=== PATIENT | male | born 1970 | race Caucasian/White ===

== ENCOUNTER 2016-11-28 09:47 | Emergency (ER) | payer BC ==
--- NOTE | 2016-11-28 10:33 | EDM.PDOC ---
ED HPI Behavioral Health - General Chief Complaint: Behavioral/Psych Stated Complaint: SICK Time Seen by Provider: 11/28/16 10:08 Source of Information: Reports: Patient Exam Limitations: Reports: No limitations - History of Present Illness INITIAL COMMENTS - FREE TEXT/NARRATIVE: Presents to the ER looking for anti-depressant/anti-anxiety medication. The patient states that he was at a counselor's office this morning having a session. This was at the [facility] here in [place]. He was told by his counselor that he needed to be on medication. She gave him the number of a couple clinics to get an appointment but neither could see him for almost 3 weeks. He reports a several year history of underlying depressive symptoms including a loss of interest and pleasure in doing things, poor appetite, weight loss, poor focus and concentration, poor libido and sleep problems. He denies any self- harm ideations. Within the last month however he has developed some anxiety symptoms related to breakdown of his relationship with his . Those are what is most bothersome for him right now. His symptoms include palpitations, constant every day worry, hot flashes, and inability to focus on his work due to racing thoughts. He has not been treated with cycle active medications in the past. - Related Data Allergies Allergy/AdvReac Type Severity Reaction Status Date / Time No Known Allergies Allergy Verified 11/28/16 09:51 Home Medications: Home Meds Linaclotide [Linzess] 72 mcg PO DAILY 11/28/16 [History] Past Medical History - Past Health History Medical/Surgical History: Denies Medical/Surgical History Psychiatric History: Reports: Anxiety, Depression - Infectious Disease History Infectious Disease History: Reports: Chicken pox Social & Family History - Family History Family Medical History: Noncontributory - Tobacco Use Smoking Status *Q: Never Smoker Second Hand Smoke Exposure: No - Caffeine Use Caffeine Use: Reports: None - Alcohol Use Days Per Week of Alcohol Use: 0 - Recreational Drug Use Recreational Drug Use: No ED ROS GENERAL - Review of Systems Review Of Systems: ROS reveals no pertinent complaints other than HPI. ED EXAM, BEHAVIORAL HEALTH - Physical Exam Exam: See Below Exam Limited By: No limitations General Appearance: alert, moderate distress (crying due to an increase in depressive symptoms) Ears: normal external exam Nose: normal inspection Throat/Mouth: Normal inspection Head: atraumatic, normocephalic Neck: normal inspection Respiratory/Chest: no respiratory distress Cardiovascular: normal peripheral pulses Extremities: normal inspection Neurological: alert Psychiatric: depressed mood, tearful Skin Exam: Warm, Dry, Intact, Normal color, No rash COURSE, BEHAVIORAL HEALTH COMP - Course Vital Signs: Last Vital Signs Temp 36.4 C 11/28/16 09:47 Pulse 90 11/28/16 09:47 Resp 18 11/28/16 09:47 BP 138/79 11/28/16 09:47 Pulse Ox 97 11/28/16 09:47 Departure - Departure Time of Disposition: 10:34 Disposition: Home, Self-Care 01 Condition: fair Clinical Impression: Anxiety, Depressive disorder Referrals: PCP,None [Primary Care Provider] - [facility] [Emergency Midlevel Provider] - Forms: ED Department Discharge Additional Instructions: 1. You may take Xanax 0.5 mg 3 times a day as needed for anxiety symptoms. No driving or operating machinery until its effects are fully appreciated. 2. See ST[facility]EN Hollins in the [facility] clinic in [place], [place] on November 30. Call [phone] for an appointment. 3. Seek prompt medical attention for self-harm ideations
[2016-11-28 10:56] VITALS: BP 140/80
== END 2016-11-28 10:57 | disposition home or self-care (01) ==
LOC: MW.ED 09:47
DX: F41.9 Anxiety disorder, unspecified (principal); F32.9 Major depressive disorder, single episode, unspecified; Z79.899 Other long term (current) drug therapy
CPT/HCPCS: 99283

== ENCOUNTER 2017-08-27 09:54 | Day surgery (SDC) | payer BC, OTHER ==
[~2017-08-27 09:54] MED LIST: Lactated Ringers 1,000 ML IV SCH
--- NOTE | 2017-08-27 10:35 | PCM.PREANE ---
Preanesthetic Assessment - Anesthesia/Transfusion/Family Hx Anesthesia History: Prior Anesthesia Without Reaction Family History of Anesthesia Reaction: No Transfusion History: No Prior Transfusion(s) - Review of Systems General: No Symptoms Pulmonary: No Symptoms Cardiovascular: No Symptoms Neurological: No Symptoms Other: Reports: None - Physical Assessment NPO Status Date: 08/26/17 Height: 1.63 m Weight: 83.007 kg ASA Class: 2 Mental Status: Alert & Oriented x3 Airway Class: Mallampati = 1 Dentition: Reports: Normal Dentition ROM/Head Extension: Full Lungs: Clear to Auscultation, Normal Respiratory Effort Cardiovascular: Regular Rate, Regular Rhythm - Allergies Allergies/Adverse Reactions: Allergies Allergy/AdvReac Type Severity Reaction Status Date / Time No Known Allergies Allergy Verified 11/28/16 09:51 - Anesthesia Plan Pre-Op Medication Ordered: None - Acknowledgements Anesthesia Type Planned: MAC Pt an Appropriate Candidate for the Planned Anesthesia: Yes Alternatives and Risks of Anesthesia Discussed w Pt/Guardian: Yes Pt/Guardian Understands and Agrees with Anesthesia Plan: Yes PreAnesthesia Questionnaire - Past Health History Medical/Surgical History: Denies Medical/Surgical History HEENT History: Reports: Other (See Below) Other HEENT History: wears glasses Respiratory History: Reports: Sleep Apnea Other Respiratory History: uses CPAP Gastrointestinal History: Reports: Hemorrhoids Genitourinary History: Reports: Renal Calculus Musculoskeletal History: Reports: Back Pain, Chronic Neurological History: Reports: Concussion Psychiatric History: Reports: Anxiety, Depression Endocrine/Metabolic History: Reports: Obesity/BMI 30+ Dermatologic History: Reports: Eczema - Infectious Disease History Infectious Disease History: Reports: Chicken Pox - Past Surgical History Head Surgeries/Procedures: Reports: None GI Surgical History: Reports: Colonoscopy Male Surgical History: Reports: Kidney Stone Extraction - SUBSTANCE USE Smoking Status *Q: Never Smoker Second Hand Smoke Exposure: No Days Per Week of Alcohol Use: 0 Recreational Drug Use History: No - HOME MEDS Home Medications: Home Meds Linaclotide [Linzess] 145 mcg PO DAILY 11/28/16 [History] DULoxetine HCl [Cymbalta] 90 mg PO DAILY 08/22/17 [History] Ibuprofen 2 tab PO ASDIRECTED PRN 08/22/17 [History] - CURRENT (IN HOUSE) MEDS Current Meds: Current Medications Lactated Ringer's (Ringers, Lactated) 1,000 mls @ 125 mls/hr IV ASDIRECTED [facility] Last Admin: 08/27/17 10:16 Dose: 125 mls/hr
[2017-08-27] MEDS ORDERED: Propofol 200 MG/20 ML SDV ONE ×2 (10:45→12:03)
[2017-08-27] MEDS ORDERED: Midazolam 1 MG/ML 2 ML SDV ONE (10:45)
[2017-08-27] MEDS ORDERED: Lidocaine 2% 5 ML SDV ONE (10:45)
[2017-08-27] MEDS ORDERED: fentaNYL 100 MCG/2 ML SDV ONE (10:45)
--- NOTE | 2017-08-27 12:26 | PCM.OPNOTE ---
- General Post-Op/Procedure Note Date of Surgery/Procedure: 08/27/17 Operative Procedure(s): Colonoscopy Pre Op Diagnosis: Intermittent rectal bleeding Post-Op Diagnosis: Mild sigmoid diverticulosis. Internal hemorrhoids. Anesthesia Technique: MAC (ASA II) Primary Surgeon: Moy Maciel Condition: Good Free Text/Narrative:: Dictation [id number] CPT CODE [id number]
[2017-08-27] MEDS ORDERED: Lactated Ringers 1,000 ML IV SCH (12:30)
[2017-08-27 13:17] VITALS: BP 108/75
--- NOTE | 2017-08-27 13:55 | PCM.POSTAN ---
POST ANESTHESIA ASSESSMENT - MENTAL STATUS Mental Status: Alert, Oriented - RESPIRATORY Respiratory Status: Respiratory Rate WNL, Airway Patent, O2 Saturation Stable - CARDIOVASCULAR CV Status: Pulse Rate WNL, Blood Pressure Stable - GASTROINTESTINAL GI Status: No Symptoms - POST OP HYDRATION Hydration Status: Adequate & Stable
--- NOTE | 2017-08-27 13:56 | PCM48HPAN ---
Post Anesthesia Note - EVALUATION WITHIN 48HRS OF ANESTHETIC Vital Signs in Normal Range: Yes Patient Participated in Evaluation: Yes Respiratory Function Stable: Yes Airway Patent: Yes Cardiovascular Function Stable: Yes Hydration Status Stable: Yes Pain Control Satisfactory: Yes Nausea and Vomiting Control Satisfactory: Yes Mental Status Recovered: Yes
--- NOTE | 2017-08-27 16:59 | OR ---
SURGEON: Moy Maciel M.D. DATE OF PROCEDURE: 08/27/2017 OPERATION PERFORMED: Colonoscopy. ANESTHESIA: MAC. ASA CLASSIFICATION: 2. PREOPERATIVE DIAGNOSIS: 1. Intermittent rectal bleeding. 2. Family history of colon polyps. POSTOPERATIVE DIAGNOSES: 1. Mild diverticulosis. 2. Internal hemorrhoids. DESCRIPTION OF PROCEDURE: The patient was taken to the endoscopy room, positioned on the endoscopy table in the left lateral decubitus position. Time-out was called for appropriate identification of patient and procedure. Monitored anesthesia care was provided. The colonoscope was inserted into the rectum and advanced with minimal difficulty to the cecum where the colonoscope was retroflexed to visualize the ascending colon from below. The colonoscope was then straightened and slowly withdrawn. The cecum, ascending colon, hepatic flexure, transverse colon, splenic flexure, and descending colon showed no tumors, polyps, diverticula, or angiodysplastic changes. A few small scattered diverticula were noted in the sigmoid colon. No stricture, spasm, or bleeding was noted. No polyps were encountered. The colonoscope was withdrawn to the rectum and retroflexed to visualize the anal orifice from above. The patient does have grade 1 internal hemorrhoids. There was no acute bleeding. The colonoscope was then straightened, the rectum aspirated, and the colonoscope removed. The patient tolerated the procedure well and was taken to recovery room in stable condition. ZEN EPSTEIN /[id number] GILMAR
== END 2017-08-27 13:10 | disposition home or self-care (01) ==
LOC: MW.SDS 09:54
PROVIDERS: ATTEND Surgery
DX: K57.30 Diverticulosis of large intestine without perforation or abscess without bleeding (principal); K64.0 First degree hemorrhoids; K62.5 Hemorrhage of anus and rectum; K40.90 Unilateral inguinal hernia, without obstruction or gangrene, not specified as recurrent; K42.9 Umbilical hernia without obstruction or gangrene; G47.30 Sleep apnea, unspecified; G89.29 Other chronic pain; M54.9 Dorsalgia, unspecified; F41.9 Anxiety disorder, unspecified; F32.9 Major depressive disorder, single episode, unspecified; E66.9 Obesity, unspecified; Z68.31 Body mass index [BMI] 31.0-31.9, adult; Z87.442 Personal history of urinary calculi; Z83.71 Family history of colonic polyps; Z79.899 Other long term (current) drug therapy; Z99.89 Dependence on other enabling machines and devices; Z98.890 Other specified postprocedural states
CPT/HCPCS: 45378; J2250; J3010; J7120; 00811; J2704

== ENCOUNTER 2024-07-16 07:08 | Day surgery (SDC) | payer BC ==
[2024-07-16] MEDS ORDERED: Propofol 200 MG/20 ML SDV ONE (07:18)
[2024-07-16] MEDS ORDERED: fentaNYL 100 MCG/2 ML SDV ONE (07:18)
[2024-07-16] MEDS ORDERED: dexmedeTOMIDine HCl 200 MCG/2 ML SDV ONE (07:18)
[2024-07-16] MEDS ORDERED: Ropivacaine 0.5% 5 MG/ML 30 ML SDV ONE (07:22)
[2024-07-16] MEDS ORDERED: Famotidine 20 MG/2 ML SDV ONE (07:22)
[2024-07-16] MEDS ORDERED: Lidocaine 2% 5 ML SDV ONE (07:23)
[2024-07-16] MEDS: Lactated Ringers 1,000 ML IV SCH (07:30)
[2024-07-16] MEDS ORDERED: Metoclopramide 10 MG/2 ML SDV IVPUSH PRN (07:36)
[2024-07-16] MEDS ORDERED: HYDROmorphone 1 MG/ML Syringe IVPUSH PRN (07:36)
[2024-07-16] MEDS ORDERED: Phenylephrine HCl In 0.9% NaCl 1 MG/10 ML Syringe IVPUSH PRN (07:36)
[2024-07-16] MEDS ORDERED: Naloxone 0.4 MG/ML SDV IVPUSH PRN (07:36)
[2024-07-16] MEDS ORDERED: Ondansetron 4 MG/2 ML SDV IVPUSH PRN (07:36)
[2024-07-16] MEDS ORDERED: fentaNYL 50 MCG/ML SDV IVPUSH PRN (07:36)
[2024-07-16] MEDS ORDERED: Morphine 2 MG/ML SYRINGE IVPUSH PRN (07:36)
[2024-07-16] MEDS ORDERED: Albuterol 0.083% 2.5 MG/3 ML Neb Soln NEB PRN (07:36)
[2024-07-16] MEDS ORDERED: ceFAZolin 2 GM in Sodium Chloride 0.9% 50 ML IV ONE (08:00)
[2024-07-16] MEDS ORDERED: fentaNYL 250 MCG/5 ML SDV ONE (08:43)
[2024-07-16] MEDS ORDERED: Ketamine HCL/NACL, ISO-OSM 50 MG/5 ML Syringe ONE (08:44)
[2024-07-16] MEDS ORDERED: Dexamethasone 4 MG/ML 5 ML MDV ONE (09:07)
[2024-07-16] MEDS ORDERED: ceFAZolin 2 GM Vial ONE (09:07)
[2024-07-16] MEDS ORDERED: Ketorolac 30 MG/ML SDV ONE (09:07)
[2024-07-16] MEDS ORDERED: Ondansetron 4 MG/2 ML SDV ONE (09:07)
[2024-07-16 12:51] VITALS: BP 118/77; PULSE 68
== END 2024-07-16 11:10 | disposition home or self-care (01) ==
LOC: MW.SDS 07:08
PROVIDERS: ATTEND Orthopaedic Surgery
DX: M19.011 Primary osteoarthritis, right shoulder (principal); F32.A Depression, unspecified; F41.9 Anxiety disorder, unspecified; G47.30 Sleep apnea, unspecified; F17.290 Nicotine dependence, other tobacco product, uncomplicated; Z79.899 Other long term (current) drug therapy
CPT/HCPCS: 23125; J0131; J0690; J1100; J1885; J2405; J2704; J2795; J3010; J3490; J7120; 00450